=== PATIENT | female | born 1995 | race Caucasian/White ===

== ENCOUNTER → 2021-11-23 16:29 | Outpatient (BNVA) | payer BC, SELFPAY | PROVIDERS: PCP Nurse Practitioner; Visit Provider Emergency Medicine | DX: J02.9 Acute pharyngitis, unspecified (principal) | CPT/HCPCS: 87880 ==

== ENCOUNTER → 2022-02-26 08:39 | Outpatient (BNVA) | payer BC, SELFPAY | PROVIDERS: PCP Nurse Practitioner; Visit Provider Family Medicine Adult Medicine | DX: J30.9 Allergic rhinitis, unspecified (principal); J02.9 Acute pharyngitis, unspecified | CPT/HCPCS: 87880 ==

== ENCOUNTER → 2022-06-25 14:00 | Outpatient (BNVA) | payer OTHER, SELFPAY | PROVIDERS: Visit Provider Obstetrics & Gynecology | DX: O09.899 Supervision of other high risk pregnancies, unspecified trimester (principal); G43.009 Migraine without aura, not intractable, without status migrainosus; O09.291 Supervision of pregnancy with other poor reproductive or obstetric history, first trimester; O09.10 Supervision of pregnancy with history of ectopic pregnancy, unspecified trimester | CPT/HCPCS: 80307; 84156; 84315; 85025; 86592; 86762; 86803; 86850; 86900; 87077; 87086; 87184; 87491; 87591; 87806 ==

== ENCOUNTER 2022-07-23 11:50 | Outpatient (CLI) | payer OTHER, SELFPAY ==
[2022-07-23 13:46] LABS: Total Volume, Urine 1600 mL; Urine Total Protein 5.7 mg/dL (0-150); Urine Total Protein 24 Hour 91.2 mg/24hr (0-150)
== END 2022-07-23 11:51 | disposition home or self-care (01) ==
LOC: LAB 11:59
PROVIDERS: PCP Family Medicine; Visit Provider Obstetrics & Gynecology
DX: O09.899 Supervision of other high risk pregnancies, unspecified trimester (principal)
CPT/HCPCS: 36415; 84156

== ENCOUNTER → 2022-07-30 08:00 | Outpatient (BNVA) | payer OTHER, SELFPAY | PROVIDERS: PCP Family Medicine; Visit Provider Nurse Practitioner Women's Health | DX: O09.899 Supervision of other high risk pregnancies, unspecified trimester (principal); X58.XXXA Exposure to other specified factors, initial encounter | CPT/HCPCS: 84315; 87077; 87086; 87184 ==

== ENCOUNTER → 2022-08-21 11:23 | Outpatient (BNVA) | payer OTHER, SELFPAY | PROVIDERS: PCP Family Medicine; Visit Provider Obstetrics & Gynecology | DX: Z34.92 Encounter for supervision of normal pregnancy, unspecified, second trimester (principal); Z3A.20 20 weeks gestation of pregnancy | CPT/HCPCS: 76805 ==

== ENCOUNTER → 2022-08-30 10:00 | Outpatient (BNVA) | payer SELFPAY | PROVIDERS: PCP Family Medicine; Visit Provider Obstetrics & Gynecology | DX: O09.899 Supervision of other high risk pregnancies, unspecified trimester (principal); Z3A.00 Weeks of gestation of pregnancy not specified | CPT/HCPCS: 81000 ==

== ENCOUNTER → 2022-09-23 12:20 | Outpatient (BNVA) | payer OTHER, SELFPAY | PROVIDERS: PCP Family Medicine; Visit Provider Obstetrics & Gynecology | DX: O09.292 Supervision of pregnancy with other poor reproductive or obstetric history, second trimester (principal); Z3A.00 Weeks of gestation of pregnancy not specified | CPT/HCPCS: 80053; 82950; 84156; 84315; 85025; 87077; 87086; 87184 ==

== ENCOUNTER → 2022-09-24 13:17 | Outpatient (BNVA) | payer OTHER, SELFPAY | PROVIDERS: PCP Family Medicine; Visit Provider Obstetrics & Gynecology | DX: Z34.92 Encounter for supervision of normal pregnancy, unspecified, second trimester (principal); Z3A.26 26 weeks gestation of pregnancy | CPT/HCPCS: 76816 ==

== ENCOUNTER 2022-09-30 12:22 | Outpatient (CLI) | payer OTHER, SELFPAY ==
[2022-09-30 13:47] LABS: Total Volume, Urine 2200 mL
[2022-09-30 13:59] LABS: Urine Total Protein 7.5 mg/dL (0-150)
== END 2022-09-30 12:23 | disposition home or self-care (01) ==
LOC: LAB 12:24
PROVIDERS: PCP Family Medicine; Visit Provider Obstetrics & Gynecology
DX: O09.292 Supervision of pregnancy with other poor reproductive or obstetric history, second trimester (principal)
CPT/HCPCS: 84156

== ENCOUNTER 2022-10-14 08:16 | Outpatient (CLI) | payer OTHER, SELFPAY ==
[2022-10-14 08:48] LABS: Total Volume, Urine 2100 mL
[2022-10-14 09:13] LABS: Urine Total Protein 7.3 mg/dL (0-150); Urine Total Protein 24 Hour 153.3 mg/24hr (0-150)
== END 2022-10-14 08:17 | disposition home or self-care (01) ==
LOC: LAB 08:19
PROVIDERS: PCP Family Medicine; Visit Provider Obstetrics & Gynecology
DX: O09.292 Supervision of pregnancy with other poor reproductive or obstetric history, second trimester (principal)
CPT/HCPCS: 84156

== ENCOUNTER → 2022-10-15 11:56 | Outpatient (BNVA) | payer OTHER, SELFPAY | PROVIDERS: PCP Family Medicine; Referring Provider Obstetrics & Gynecology; Visit Provider Nurse Practitioner Women's Health | DX: O36.60X0 Maternal care for excessive fetal growth, unspecified trimester, not applicable or unspecified (principal); Z3A.29 29 weeks gestation of pregnancy | CPT/HCPCS: 76816; 81000 ==

== ENCOUNTER 2022-11-04 19:10 | Outpatient (CLI) | payer OTHER, SELFPAY ==
[2022-11-04] VITALS (31 sets, daily range): BP systolic 130–150; BP diastolic 82–94; PULSE 71–111; RESP 16–17; O2SAT 92–100; BMI 29.1
[2022-11-04 20:04] LABS: Basophils % 0.2 %; Eosinophils % 0.3 %; Hematocrit 34.1 % (37.0-47.0); Hemoglobin 11.6 g/dL (11.5-15.3); Lymphocytes # 1.9 10^3/uL (0.8-4.8); Lymphocytes % 18.8 %; Mean Corpuscular Hemoglobin 30.2 pg (28.0-34.0); Mean Corpuscular Volume 88.8 fl (81-99); Mean Platelet Volume 11.3 fL (7.4-10.4); Monocytes # 0.5 10^3/uL (0.2-0.9); Monocytes % 5.3 %; Neutrophils # 7.51 10^3/uL (1.8-7.7); Neutrophils % 74.7 %; Nucleated Red Blood Cells % 0 %; Platelet Count 260 10^3/cmm (130-400); Red Blood Count 3.84 10^6/uL (4.1-5.3); Red Cell Distribution Width 12.2 % (12.1-15.1); White Blood Count 10.1 10^3/uL (4.0-10.0)
[2022-11-04 20:16] LABS: Add Urine Microscopic? YES; Bilirubin Urine 1+ (Negative); Blood Urine 3+ (Negative); Glucose Urine UA 1+ (Normal); Ketones Urine Negative (Negative); Leukocyte Esterase Urine Negative (Negative); Nitrate Urine Negative (Negative); Protein Urine Trace (Negative); Specific Gravity, Urine 1.025 (1.005-1.030); Urine Appearance Hazy (CLEAR); Urine Color Yellow (Yellow); Urobilinogen Urine 8 mg/dL (Negative); pH Urine 6 (5-7)
[2022-11-04 20:17] LABS: Add Urine Culture? No; Bacteria Urine 2+ /hpf; Mucus Urine 2+ /hpf; RBC Urine 25-40 /hpf (0-2)
[2022-11-04] MEDS: ondansetron 2 mg/ML SDV 2 mL 4 MG IVP (20:18)
[2022-11-04] MEDS: lactated ringers 1,000 ML 999 ML IV (20:19)
[2022-11-04 20:48] LABS: Urine Creatinine 171 mg/dL (28-217)
[2022-11-04 20:49] LABS: Alanine Aminotransferase 17 U/L (0-33); Albumin Level 3.3 g/dL (3.5-5.2); Alkaline Phosphatase 175 U/L (35-105); Anion Gap 12.5 (5-19); Aspartate Amino Transferase 27 U/L (0-32); Blood Urea Nitrogen 6 mg/dL (6-20); Calcium 8.6 mg/dL (8.5-10.5); Carbon Dioxide 23 mmol/L (22-29); Chloride 100 mmol/L (98-107); Globulin 2.9 g/dL (1.3-4.6); Glucose 95 mg/dL (65-115); Osmolality Calculated 273 mOsm/kg (285-295); Sodium 133 mmol/L (136-145); Total Bilirubin 0.6 mg/dL (0.15-1.2); Total Protein 6.2 g/dL (6.6-8.7); UPRO/UCREAT Ratio 0.26 mg/mg CR; Uric Acid 4.1 mg/dL (2.4-5.7); Urine Protein Random 45 mg/dL
[2022-11-04 20:57] LABS: Potassium 2.5 mmol/L (3.5-5.1)
== END 2022-11-04 21:22 | disposition home or self-care (01) ==
LOC: OPOB 19:15 → OBGYN 19:15
PROVIDERS: PCP Family Medicine; Visit Provider Obstetrics & Gynecology
DX: O16.9 Unspecified maternal hypertension, unspecified trimester (principal); Z3A.00 Weeks of gestation of pregnancy not specified
CPT/HCPCS: 36415; 59025; 80053; 81000; 81001; 82570; 84156; 84550; 85025; 87086; 96374; 99211; J2405; J7120

== ENCOUNTER 2022-11-05 21:21 | Outpatient (CLI) | payer OTHER, SELFPAY ==
[2022-11-05 21:41] LABS: Total Volume, Urine 1600 mL
--- NOTE | 2022-11-05 22:03 | PC.NURSE ---
Dr. Esteves called and notified of 24 hour urine results. He stated he would see the pt tomorrow.
== END 2022-11-05 21:22 | disposition home or self-care (01) ==
LOC: OPOB 21:22
PROVIDERS: PCP Family Medicine; Visit Provider Obstetrics & Gynecology
DX: O09.292 Supervision of pregnancy with other poor reproductive or obstetric history, second trimester (principal); Z3A.00 Weeks of gestation of pregnancy not specified
CPT/HCPCS: 84156

== ENCOUNTER → 2022-11-06 | Outpatient (BNVA) | payer OTHER, SELFPAY | PROVIDERS: PCP Family Medicine; Visit Provider Obstetrics & Gynecology | DX: E87.6 Hypokalemia (principal) | CPT/HCPCS: 87086 ==

== ENCOUNTER → 2022-11-07 14:03 | Outpatient (BNVA) | payer OTHER, SELFPAY | PROVIDERS: PCP Family Medicine; Visit Provider Obstetrics & Gynecology | DX: O09.292 Supervision of pregnancy with other poor reproductive or obstetric history, second trimester (principal) | CPT/HCPCS: 84132 ==

== ENCOUNTER 2022-11-11 11:12 | Outpatient (CLI) | payer OTHER, SELFPAY ==
[2022-11-11 11:30] VITALS: BMI 29.7
[2022-11-11] MEDS: betamethasone susp 6 mg/mL 5 mL 12 MG IM (11:43)
== END 2022-11-11 11:45 | disposition home or self-care (01) ==
LOC: OPOB 11:19 → OBGYN 11:19
PROVIDERS: PCP Family Medicine; Visit Provider Obstetrics & Gynecology
DX: O09.299 Supervision of pregnancy with other poor reproductive or obstetric history, unspecified trimester (principal); Z3A.00 Weeks of gestation of pregnancy not specified
CPT/HCPCS: 96372; 99211; J0702

== ENCOUNTER 2022-11-12 12:00 | Outpatient (CLI) | payer OTHER, SELFPAY ==
[2022-11-12 12:00] VITALS: RESP 18
[2022-11-12 12:04] VITALS: BMI 29.6
[2022-11-12 12:07] VITALS: BP 140/99; PULSE 98
[2022-11-12] MEDS: betamethasone susp 6 mg/mL 5 mL 12 MG IM (12:10)
[2022-11-12 18:55] LABS: Urine Creatinine 101 mg/dL (28-217)
[2022-11-12 18:57] LABS: UPRO/UCREAT Ratio 0.38 mg/mg CR; Urine Protein Random 38 mg/dL
== END 2022-11-12 12:15 | disposition home or self-care (01) ==
LOC: OPOB 12:01 → OBGYN 12:03
PROVIDERS: Obstetrics & Gynecology; PCP Family Medicine; Visit Provider Obstetrics & Gynecology
DX: O13.9 Gestational [pregnancy-induced] hypertension without significant proteinuria, unspecified trimester (principal); Z3A.00 Weeks of gestation of pregnancy not specified
CPT/HCPCS: 59025; 82570; 84156; 96372; 99211; J0702

== ENCOUNTER 2022-11-13 | Observation (INO) | payer OTHER, SELFPAY ==
[2022-11-12] VITALS (9 sets, daily range): BP systolic 116–148; BP diastolic 61–98; PULSE 73–102; TEMP 36.3; BMI 29.7
[2022-11-12 21:22] LABS: Basophils % 0.1 %; Hematocrit 35.2 % (37.0-47.0); Lymphocytes # 1.2 10^3/uL (0.8-4.8); Mean Corpuscular HGB Conc 34.1 g/dL (30.0-36.0); Mean Corpuscular Hemoglobin 29.8 pg (28.0-34.0); Mean Corpuscular Volume 87.3 fl (81-99); Mean Platelet Volume 11.7 fL (7.4-10.4); Monocytes # 0.4 10^3/uL (0.2-0.9); Monocytes % 3.5 %; Neutrophils # 10.15 10^3/uL (1.8-7.7); Neutrophils % 84.9 %; Nucleated Red Blood Cells % 0 %; Platelet Count 333 10^3/cmm (130-400); Red Blood Count 4.03 10^6/uL (4.1-5.3); Red Cell Distribution Width 11.8 % (12.1-15.1)
[2022-11-12 21:28] LABS: Add Urine Microscopic? YES; Bilirubin Urine Neg (Negative); Blood Urine Trace (Negative); Glucose Urine UA 1+ (Normal); Ketones Urine Negative (Negative); Leukocyte Esterase Urine Negative (Negative); Nitrate Urine Negative (Negative); Protein Urine Neg (Negative); Specific Gravity, Urine 1.015 (1.005-1.030); Urine Appearance Clear (CLEAR); Urine Color Yellow (Yellow); Urobilinogen Urine Neg (Negative); pH Urine 7 (5-7)
[2022-11-12 21:29] LABS: Add Urine Culture? No; Amorphous Sediment Urine 1+ /hpf; Bacteria Urine 1+ /hpf; RBC Urine 0-4 /hpf (0-2)
[2022-11-12 21:41] LABS: Alanine Aminotransferase 195 U/L (0-33); Albumin Level 3.3 g/dL (3.5-5.2); Alkaline Phosphatase 227 U/L (35-105); Anion Gap 15.4 (5-19); Aspartate Amino Transferase 233 U/L (0-32); Blood Urea Nitrogen 9 mg/dL (6-20); Carbon Dioxide 22 mmol/L (22-29); Chloride 102 mmol/L (98-107); Globulin 3.5 g/dL (1.3-4.6); Glucose 146 mg/dL (65-115); Osmolality Calculated 283 mOsm/kg (285-295); Potassium 3.4 mmol/L (3.5-5.1); Sodium 136 mmol/L (136-145); Total Bilirubin 0.6 mg/dL (0.15-1.2); Total Protein 6.8 g/dL (6.6-8.7); Uric Acid 3.4 mg/dL (2.4-5.7)
[2022-11-12 22:01] LABS: Urine Creatinine 46 mg/dL (28-217); Urine Protein Random 14 mg/dL
--- NOTE | 2022-11-12 22:03 | USR_ITS ---
PROCEDURE INFORMATION: Exam: US Biophysical Profile Without Non-Stress Test Exam date and time: 11/12/2022 10:19 PM Age: 27 years old Clinical indication: Screening exam; Routine US screening of fetus; Third trimester (=28 weeks 0 days); ; Patient HX: Pre-eclampsia TECHNIQUE: Imaging protocol: US biophysical profile without non-stress testing. COMPARISON: US OB >= 14 weeks fetus [id number] 08/21/2022 11:24 AM FINDINGS: Single living fetus in cephalic position. heart activity documented by the technologist, 150 bpm. Biophysical profile was 8/8. Anterior placenta. No visible placental abnormality on the provided images. Amniotic fluid volume appears within normal limits for gestation, GERALD 16.5 cm. measurements were not obtained at this time. Evaluation of anatomy was not performed at this time. Cervical length was estimated with transabdominal scanning, measuring approximately 3.2 cm. No definite cervical canal dilation or fluid on the provided images. The urinary bladder was not completely evaluated/imaged at this time. US/US OB BPP wo NST [id number] IMPRESSION: 1. Single living intrauterine fetus, details above. 2. Biophysical profile 8/8. 3. Amniotic fluid volume appears within normal limits for gestation, GERALD 16.5 cm. 4. Other details discussed above.
[2022-11-12] MEDS: famotidine 20 mg Tablet PO (23:14)
[2022-11-12] MEDS: dextrose 5%-lactated ringers 1,000 ML 125 ML IV (23:15)
[2022-11-13] VITALS (35 sets, daily range): BP systolic 110–141; BP diastolic 64–95; PULSE 69–100; RESP 16; TEMP 36.6–36.7
--- NOTE | 2022-11-13 07:00 | P.PN_ITS ---
Subjective Subjective: Ms. Barajas is a 26 year old new patient with LMP of 04/05/2022, JOO 01/10/2023, placing her at 32 weeks. Came to L&D due elevated BP at home. Vitals/I&O/Wt Last Vital Signs Temp 97.9 F 11/13/22 06:02 Pulse 100 11/13/22 06:51 BP 126/80 11/13/22 06:51 O2 Del Method Room Air 11/12/22 21:06 Weight last 48 hrs Weight 86.183 kg Physical Exam Narrative: GA: Alert and oriented ?3. Lungs: Clear to auscultation bilaterally. Heart: Regular rhythm and rate. Abdomen: Gravid, full the height equals dates, nontender. 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 Extremities: no edema, no cyanosis, no calves pain. heart tracing: Basal rate: 140's bpm, Variability: moderate, Accelerati ons: present, Decelerations: absent, Contraction: none. Data 11/12/22 21:10 11/12/22 21:10 A&P Assessment and plan (1) Gestational hypertension affecting second : Ms. Barajas is a 26 year old new patient with LMP of 04/05/2022, JOO 01/10/2023, placing her at 32 weeks. Came with concerns with elevated blood pressure. Preeclampsia work-up significant with mildly elevated liver enzymes and protein creatinine ratio at 0.3. Overnight observation blood pressure has been completely normal. Patient was counseled regarding conservative management since she is only 32 weeks. 24-hour urine collection ordered, NST twice a week biophysical profile once a week and preeclampsia work-up weekly until the patient can reach 37 weeks or until she start showing symptoms and signs of severe preeclampsia. She was advised to be homebound for the rest of the week except care visits. (2) Pre-eclampsia affecting , antepartum: (3) History of pre-eclampsia in prior , currently in third t rimester: Attestations Medical Necessity Statement*: In my professional opinion poor admitting diagnosis. Coding Level of Care Code Acute Code for [facility] Diagnoses Gestational hypertension affecting second O13.9 Pre-eclampsia affecting , antepartum O14.90 History of pre-eclampsia in prior , currently in third trimester O09.293
== END 2022-11-13 08:15 | disposition home or self-care (01) ==
LOC: OBGYN 07:34
PROVIDERS: Admitting Provider Obstetrics & Gynecology; PCP Family Medicine; Visit Provider Obstetrics & Gynecology
DX: O13.3 Gestational [pregnancy-induced] hypertension without significant proteinuria, third trimester (principal); O14.93 Unspecified pre-eclampsia, third trimester; Z3A.32 32 weeks gestation of pregnancy
CPT/HCPCS: 36415; 59025; 76819; 80053; 81001; 82570; 83986; 84156; 84550; 85025; 99211; G0378; J7121

== ENCOUNTER 2022-11-14 09:48 | Outpatient (CLI) | payer OTHER, SELFPAY ==
[2022-11-14 11:17] LABS: Total Volume, Urine 4800 mL
[2022-11-14 12:06] LABS: Urine Total Protein 11.8 mg/dL (0-150); Urine Total Protein 24 Hour 566.4 mg/24hr (0-150)
== END 2022-11-14 09:49 | disposition home or self-care (01) ==
PROVIDERS: PCP Family Medicine; Visit Provider Obstetrics & Gynecology
DX: Z01.89 Encounter for other specified special examinations (principal)
CPT/HCPCS: 76816; 76819; 84156

== ENCOUNTER → 2023-05-30 11:09 | Outpatient (BNVA) | payer OTHER, SELFPAY | PROVIDERS: PCP Family Medicine; Visit Provider Family Medicine | DX: R10.9 Unspecified abdominal pain (principal) | CPT/HCPCS: 80053; 84439; 84443 ==

== ENCOUNTER 2023-06-20 08:52 | Outpatient (CLI) | payer OTHER, SELFPAY ==
--- NOTE | 2023-06-20 09:00 | US_ITS ---
WS: [id number] RIGHT UPPER QUADRANT ULTRASOUND HISTORY: RUQ pain COMPARISON: None available. Liver: 16.4 cm in length. Normal size liver and echogenicity. No bile duct dilatation or mass. Portal Vein: Normal hepatopetal flow with monophasic waveform. Gallbladder: Normally distended gallbladder with no stones or wall thickening. CBD: 0.3 cm Pancreas: Normal size and echogenicity. Right kidney: 11.0 cm in length. Normal size and echogenicity. No hydronephrosis or mass. Aorta and IVC: Unremarkable abdominal aorta and IVC. No ascites. IMPRESSION: Normal RIGHT upper quadrant ultrasound.
== END 2023-06-20 08:53 | disposition home or self-care (01) ==
LOC: RAD 08:52
PROVIDERS: PCP Family Medicine; Visit Provider Family Medicine
DX: R10.11 Right upper quadrant pain
CPT/HCPCS: 76705

== ENCOUNTER → 2023-10-08 10:34 | Outpatient (BNVA) | payer OTHER, SELFPAY | PROVIDERS: PCP Family Medicine; Visit Provider Nurse Practitioner Family | DX: R50.9 Fever, unspecified (principal) | CPT/HCPCS: 87400 ==

== ENCOUNTER → 2023-12-11 09:00 | Outpatient (BNVA) | payer OTHER, SELFPAY | PROVIDERS: PCP Family Medicine; Visit Provider Obstetrics & Gynecology | DX: R82.90 Unspecified abnormal findings in urine (principal) | CPT/HCPCS: 87077; 87086; 87184 ==

== ENCOUNTER 2024-03-03 14:28 | Emergency (ER) | payer OTHER, SELFPAY ==
[2024-03-03 14:30] VITALS: BP 153/108; PULSE 93; RESP 18; TEMP 36.7; O2SAT 100; BMI 26.6
--- NOTE | 2024-03-03 14:45 | W.ED.GENADLT ---
HPI - General Adult General: Chief complaint: General Medical Stated complaint: facial numbness, dizziness Time Seen by Provider: 03/03/24 14:45 History of Present Illness: 28-year-old female presents emergency room with right-sided facial numbness and dizziness that began suddenly while at work at 1410 she arrived here at 1428. States she felt like her right eye was drooping she had a headache intermittently for the last week. She does not normally take anything for blood pressure 16 months ago she had a baby had significant preeclampsia she was required to take medications for blood pressure for a period of time and then after about 6 weeks they stopped does not she has not needed anything since. On arrival here 18 minutes after the episode all of her symptoms have resolved. Initially a stroke alert was called see Dr. Walker's consultation note Associated symptoms: Deny chest pain, dyspnea or rash Related Data Home Medications Medication Instructions Recorded Confirmed dapsone 5 % topical gel 1 applic topical BID 05/30/23 10/23/23 levonorgestrel 21 mcg/24 hr (up to intrauterine 05/30/23 10/23/23 8 years) 52 mg intrauterine device (Mirena) Previous Rx's Medication Instructions Recorded famotidine 40 mg tablet 40 mg PO DAILY #30 tabs 10/23/23 levocetirizine 5 mg tablet (Xyzal) 5 mg PO DAILY #30 tabs 10/23/23 estradiol 0.5 mg tablet 0.5 mg PO QDAY #90 tabs 11/04/23 amitriptyline 10 mg tablet 10 mg PO DAILY #90 tabs 12/18/23 escitalopram oxalate 10 mg tablet 10 mg PO DAILY #30 tabs 01/26/24 (Lexapro) ciprofloxacin HCl 0.3 % eye drops See Rx Instructions ophthalmic 01/30/24 (eye) .COMPLEX #2.5 mL doxycycline hyclate 100 mg capsule 100 mg PO BID #14 caps 02/12/24 amlodipine 5 mg tablet 2.5 mg (1/2 x 5 mg) PO DAILY #30 03/03/24 tabs metoprolol succinate 25 mg 25 mg PO DAILY #30 tabs 03/03/24 tablet,extended release 24 hr (Toprol XL) Allergies Allergy/AdvReac Type Severity Reaction Status Date / Time naproxen Allergy Intermediate ALGY-Hives Verified 10/23/23 14:36 Review of Systems Const: Denies: fever(s) or chills Card: Denies: chest pain Resp: Denies: dyspnea GI: Denies: abdominal pain : Denies: dysuria, urinary frequency or urinary urgency Musc: Denies: neck pain or back pain Skin/Breast: Denies: rash PFSH ED PFSH: Medical History History of pre-eclampsia in prior , currently in third trimester Gestational hypertension without significant proteinuria Anxiety Migraine without aura History of ectopic (~2018) Left fallopian tube--- treated with MTX;Dr [facility] Surgical History History of tonsillectomy and adenoidectomy at age 6 Hx of wisdom tooth extraction (~2014) Family History Grandfather Colon cancer Paternal--dx age unknown Cancer Paternal-liver Grandmother Hypertension Maternal Stroke Maternal Father Hypertension Other Diabetes Liver disease Denies family history of Ovarian cancer Autoimmune disease Dementia Heart disease Hyperlipidemia Hyperthyroidism Hypothyroidism Psychiatric illness Chronic kidney disease (CKD) Breast cancer Bleeding disorder Lung disease Uterine cancer Thyroid disease Social History Smoking and tobacco/nicotine status: never used tobacco/nicotine Alcohol intake: current Alcohol intake frequency: holidays/special occasions only Substance/Drug Use: never Lives independently: Yes Marital status: Number of children: 2 Current occupational status: employed 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 [employer] Special flavia needs: No Agree to transfusion: Yes Female Reproductive History: Spontaneous abortions: No Physical Exam Const: GENERAL APPEARANCE: cooperative ORIENTATION/CONSCIOUSNESS: Yes awake, Yes oriented to person, Yes oriented to place and Yes oriented to time HENMT: COMMON NORMALS: normocephalic, atraumatic and hearing grossly normal bilaterally HEAD & SCALP: normocephalic and atraumatic Resp: COMMON NORMALS: normal respiratory effort, No retractions, No use of accessory muscles and clear to auscultation bilaterally AUSCULTATION: clear to auscultation bilaterally Cardio: COMMON NORMALS: regular rate, regular rhythm and No murmurs present (Cardio) RATE: regular rate RHYTHM: regular rhythm GI: COMMON NORMALS: Soft to palpation and No hepatosplenomegaly present AUSCULTATION: Yes normoactive bowel sounds PALPATION: Yes Soft to palpation, No Tenderness to palpation present (GI), No Guarding due to palpation present (GI) and Yes No hepatosplenomegaly present Extremity: COMMON NORMALS: normal to inspection, capillary refill normal, no clubbing, cyanosis or edema, no calf tenderness and no pedal edema Neuro: SENSORIUM/ORIENTATION: Yes oriented to person, Yes oriented to place and Yes oriented to time Skin: COMMON NORMALS: no rashes or lesions noted GENERAL SKIN EXAM: no rashes or lesions noted Course Vital Signs: Vital signs: Vital Signs Temperature 98.1 F 03/03/24 14:30 Pulse Rate 79 03/03/24 16:30 Respiratory Rate 21 H 03/03/24 14:55 Blood Pressure 122/97 03/03/24 16:30 Pulse Oximetry 98 03/03/24 16:30 Oxygen Delivery Me thod Room Air 03/03/24 14:55 MDM - General Adult Medical Decision Making Patient is initial presenting NIH score was 0 on repeat exam she is feeling much better she did not have any further symptoms we did treat her blood pressure and she feels much better. I discussed with Dr. Walker he is not recommended aspirin at this time. Recommends just treating her blood pressure. Will start on Toprol-XL 25 p.o. daily and also put her on amlodipine 2.5 p.o. daily will go with a lower dose because she is still breast-feeding however her child is 16 months. She indicated she is probably not going to continue breast-feeding much longer. Recommend that she follow-up with her primary care doctor within the next couple of days prior to the weekend to reevaluate blood pressure. If she has recurrence or worsening of symptoms she should return. If her symptoms do recur she may require further advanced imaging. Lab Data 03/03/24 15:08 03/03/24 15:[address] 03/03/24 14:55 IMPRESSION: 1. No evidence of intracranial hemorrhage or mass effect. 2. No acute intracranial findings. Notified Андрей Mane DO at 03/03/2024 3:10 PM. Laboratory Results WBC 8.50 10^3/uL (3.29-11.43) 03/03/24 15:08 RBC 4.92 10^6/uL (3.85-5.65) 03/03/24 15:08 Hgb 14.90 g/dL (11.27-16.99) 03/03/24 15:08 Hct 43.8 % (36-47) 03/03/24 15:08 MCV 89.0 fl (85-98) 03/03/24 15:08 MCH 30.3 pg (27-33) 03/03/24 15:08 MCHC 34.0 g/dL (30-55) 03/03/24 15:08 RDW 11.8 % (12.1-15.1) L 03/03/24 15:08 Plt Count 239 10^3/cmm (157-399) 03/03/24 15:08 MPV 11.3 fL (7.4-10.4) H 03/03/24 15:08 Neut % (Auto) 60.1 % 03/03/24 15:08 Lymph % (Auto) 31.9 % 03/03/24 15:08 Bonner % (Auto) 6.6 % 03/03/24 15:08 Eos % (Auto) 0.6 % 03/03/24 15:08 Baso % (Auto) 0.6 % 03/03/24 15:08 Neut # (Auto) 5.11 10^3/uL (1.8-7.7) 03/03/24 15:08 Lymph # (Auto) 2.7 10^3/uL (0.8-4.8) 03/03/24 15:08 Bonner # (Auto) 0.6 10^3/uL (0.2-0.9) 03/03/24 15:08 Eos # (Auto) 0.1 10^3/uL (0.0-0.8) 03/03/24 15:08 Baso # (Auto) 0.1 10^3/uL (0.0-0.1) 03/03/24 15:08 Nucleated RBC % (auto) 0 % 03/03/24 15:08 Nucleated RBCs # 0.0 /100WBC 03/03/24 15:08 PT 13.10 SECONDS (12.1-14.9) 03/03/24 15:30 INR 0.96 (0.8-1.2) 03/03/24 15:30 APTT 27.0 SECONDS (23.9-36.7) 03/03/24 15:30 Sodium 138 mmol/L (136-145) 03/03/24 15:30 Potassium 3.7 mmol/L (3.5-5.1) 03/03/24 15:30 Chloride 105 mmol/L (98-107) 03/03/24 15:30 Carbon Dioxide 23 mmol/L (22-29) 03/03/24 15:30 Anion Gap 13.7 (5-19) 03/03/24 15:30 BUN 7 mg/dL (6-20) 03/03/24 15:30 Creatinine 0.7 mg/dL (0.5-0.9) 03/03/24 15:30 GFR Calculation 98.9 mL/min (90-130) 03/03/24 15:30 Glucose 106 mg/dL (65-115) 03/03/24 15:30 POC Glucose 103 mg/dL (70-110) 03/03/24 15:06 Calculated Osmolality 284 mOsm/kg (285-295) L 03/03/24 15:30 Calcium 9.0 mg/dL (8.5-10.5) 03/03/24 15:30 Total Bilirubin 0.4 mg/dL (0.15-1.2) 03/03/24 15:30 AST 18 U/L (0-32) 03/03/24 15:30 ALT 25 U/L (0-33) 03/03/24 15:30 Alkaline Phosphatase 98 U/L (35-105) 03/03/24 15:30 Total Protein 7.0 g/dL (6.6-8.7) 03/03/24 15:30 Albumin 4.2 g/dL (3.5-5.2) 03/03/24 15:30 Globulin 2.8 g/dL (1.3-4.6) 03/03/24 15:30 HCG, Qual Negative (Negative) 03/03/24 15:30 Urine Color Yellow (Yellow) 03/03/24 15:12 Urine Appearance Clear (CLEAR) 03/03/24 15:12 Urine pH 5.5 (5-7) 03/03/24 15:12 Ur Specific [place] 1.004 (1.005-1.030) L 03/03/24 15:12 Urine Protein Negative (Negative) 03/03/24 15:12 Urine Glucose (UA) Negative (Normal) 03/03/24 15:12 Urine Ketones Negative (Negative) 03/03/24 15:12 Urine Blood Negative (Negative) 03/03/24 15:12 Urine Nitrate Negative (Negative) 03/03/24 15:12 Urine Bilirubin Negative (Negative) 03/03/24 15:12 Urine Urobilinogen 0.2 mg/dL (Negative) 03/03/24 15:12 Ur Leukocyte Esterase Trace (Negative) A 03/03/24 15:12 Urine RBC 0-2 /hpf (0-2) 03/03/24 15:12 Urine WBC 0-5 /hpf (0-5) 03/03/24 15:12 Ur Squamous Epith Cells 0-5 /hpf (0-5) 03/03/24 15:12 Amorphous Sediment Not Reportable 03/03/24 15:12 Urine Bacteria 1+ /hpf (NONE) H 03/03/24 15:12 Hyaline Casts 0-4 /lpf H 03/03/24 15:12 Urine Opiates Screen Negative ng/mL (Negative) 03/03/24 15:12 Ur Barbiturates Screen Negative ng/mL (Negative) 03/03/24 15:12 Ur Phencyclidine Scrn Negative ng/mL (Negative) 03/03/24 15:12 Ur Amphetamines Screen Negative ng/mL (Negative) 03/03/24 15:12 U Benzodiazepines Scrn Negative ng/mL (Negative) 03/03/24 15:12 Urine Cocaine Screen Negative ng/mL (Negative) 03/03/24 15:12 U Marijuana (THC) Screen Negative ng/mL (Negative) 03/03/24 15:12 All radiology interpretation(s) finalized by discharge Discharge Plan Discharge Patient Disposition: Home Clinical Impression: Accelerated hypertension Condition: Stable Prescriptions: New amlodipine 5 mg tablet 2.5 mg PO DAILY Qty: 30 0RF Toprol XL 25 mg tablet extended release 24 hr 25 mg PO DAILY Qty: 30 0RF No Action Mirena 21 mcg/24 hours (8 yrs) 52 mg intrauterine device intrauterine dapsone 5 % gel 1 applic topical BID levocetirizine [Xyzal] 5 mg tablet 5 mg PO DAILY Qty: 30 4RF famotidine 40 mg tablet 40 mg PO DAILY Qty: 30 1RF estradiol 0.5 mg tablet 0.5 mg PO QDAY Qty: 90 3RF amitriptyline 10 mg tablet 10 mg PO DAILY Qty: 90 3RF escitalopram oxalate [Lexapro] 10 mg tablet 10 mg PO DAILY Qty: 30 1RF ciprofloxacin HCl 0.3 % drops See Rx Instructions ophthalmic (eye) .COMPLEX Qty: 2.5 0RF Rx Instructions: put 1-2 drps in affected eye(s) every 2hr up to 8 times/day x2days; then 4 times/day x5days ophthalmic (eye) doxycycline hyclate 100 mg capsule 100 mg PO BID Qty: 14 0RF Discharge Orders: Discharge ED (Routine); Ordered 03/03/24 Ordered By: Андрей Mane Referrals: Curtis Recinos MD [Primary Care Provider] - Discharge Diet: Usual diet Discharge Activity: Increase activity as tolerated Patient Instructions: Opioid Safety, Pain Management Activity Restrictions/Additional Instructions: Thank you for choosing [facility] for your healthcare needs today. It is very important that you follow up as instructed or that you return to the Emergency Department should you have concerns or if your condition changes or worsens in any way. You are seen in the emergency room for complaints of right-sided facial weakness. We did have you evaluated by the neurologist as well as having a CT of your head. Your stroke score was 0 and as your blood pressure improved you reported your symptoms had resolved. I discussed your case with the on-call neurologist who had seen you earlier we both agree at this point would not recommend aspirin but do recommend treatment for your blood pressure. In consideration of your current breast-feeding status will use the lowest possible dose of amlodipine 2.5 mg daily and metoprolol XL 25 mg daily. Should follow-up with your primary care doctor within the next few days and reevaluate efficacy and continuing medications. Coding Level of Care Code ED Pest Control Specialist for [facility]
[2024-03-03 14:55] VITALS: BP 148/98; PULSE 80; RESP 21; O2SAT 99
--- NOTE | 2024-03-03 14:55 | CT_ITS ---
WS: [id number] CT HEAD TECHNIQUE: Noncontrast CT of the head obtained from the skullbase to the vertex. CLINICAL INFORMATION: Symptoms of acute stroke COMPARISON: None. DLP: All CT scans at [facility] use at least one of these dose optimization techniques: automated e xposure control; mA and/or kV adjustment per patient size (includes targeted exams where dose is matc hed to clinical indication); or iterative reconstruction. FINDINGS: No evidence of intracranial hemorrhage or mass effect. Ventricular system and basal cisterns are church nt. No extra-axial fluid collections. No evidence of mass or mass effect. Normal tobar-white different iation. Incidental slight low-lying cerebellar tonsils. Paranasal sinuses and mastoid air cells are well aerated. .Normal visualized soft tissues. CT/CT head thrombolytic [id number] IMPRESSION: 1. No evidence of intracranial hemorrhage or mass effect. 2. No acute intracranial findings. Notified Андрей Mane DO at 03/03/2024 3:10 PM.
[2024-03-03 15:09] VITALS: BP 153/106; PULSE 80; O2SAT 99
--- NOTE | 2024-03-03 15:09 | ECG_ITS ---
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 Measurements Intervals [place] Rate: 77 P: 47 MN: 151 QRS: 49 QRSD: 87 T: 33 QT: 368 QTc: 418 Interpretive Statements SINUS RHYTHM WITH SINUS ARRHYTHMIA No previous ECG available for comparison Electronically Signed On 03-03-2024 15:37:02 CDT by Jerardo Reynolds M.D. [email or web address]
[2024-03-03 15:11] LABS: Glucose Point of Care 103 mg/dL (70-110)
--- NOTE | 2024-03-03 15:12 | P.CONIM_ITS ---
Providers/Reason For Consult 2 Consulting Physician/Specialty*: Armando Walker MD neurology and epilepsy Reason for Consult*: Code stroke/acute care emergency department room #15 Primary Care Provider: Curtis Recinos MD History of Present Illness History of Present Illness Brenda Farris is a 28 year old female who reports that she was at work and suddenly experienced a sensation that she was far away followed by numbness in the right face and a V2 and V3 distribution followed by dizziness and near fainting sensation. Patient presented to the [facility] emergency department code stroke initiated at 2:55 PM on 03/03/2024. In the emergency department patient reported symptoms resolved. NIH stroke score = 0 Accu-Chek glucose [address] reported to be negative per ER physician. Official radiology reading pending at the time of this dictation. According to the patient, she is a mother of 2 children and stated that she experienced preeclampsia with both pregnancies but the last October 2022 she experienced severe preeclampsia. In the [facility] emergency department currently patient blood pressure 153/106 heart rate 81 O2 saturation 100% on room air. Patient in no apparent distress. Drug allergies: Naproxen which resulted in hives Current medications: Amitriptyline 10 mg p.o. daily Lexapro 10 mg p.o. daily IUD control Estradiol 0.5 mg p.o. daily Pepcid 40 mg p.o. daily Past medical history: Mother of 2 children last delivery October 2022 Preeclampsia with both pregnancies Breast-feeding Habits: Patient denies ever smoking. She reported occasional alcohol use but stated that she quit drinking alcohol. The patient denied other drug use. Family history: Remarkable for a maternal grandmother who experienced a stroke Last menstrual period: Patient denies being she is reports she has an IUD. Note: Patient is breast-feeding Review of Systems 2 General: Reports: 10 or more systems reviewed and unremarkable except in HPI and below Medications/Allergies Home Medications Medication Instructions Recorded Confirmed Last Taken Type dapsone 5 % topical gel 1 applic topical BID 05/30/23 10/23/23 Unknown History levonorgestrel 21 mcg/24 hr (up to intrauterine 05/30/23 10/23/23 Unknown History 8 years) 52 mg intrauterine device (Mirena) famotidine 40 mg tablet 40 mg PO DAILY #30 tabs 10/23/23 10/23/23 Unknown Rx levocetirizine 5 mg tablet (Xyzal) 5 mg PO DAILY #30 tabs 10/23/23 10/23/23 Unknown Rx estradiol 0.5 mg tablet 0.5 mg PO QDAY #90 tabs 11/04/23 Unknown Rx amitriptyline 10 mg tablet 10 mg PO DAILY #90 tabs 12/18/23 Unknown Rx escitalopram oxalate 10 mg tablet 10 mg PO DAILY #30 tabs 01/26/24 Unknown Rx (Lexapro) ciprofloxacin HCl 0.3 % eye drops See Rx Instructions ophthalmic 01/30/24 Unknown Rx (eye) .COMPLEX #2.5 mL doxycycline hyclate 100 mg capsule 100 mg PO BID #14 caps 02/12/24 Unknown Rx Allergies Allergy/AdvReac Type Severity Reaction Status Date / Time naproxen Allergy Intermediate ALGY-Hives Verified 10/23/23 14:36 PFSH Acute 2 PFSH: Medical History History of pre-eclampsia in prior , currently in third trimester Gestational hypertension without significant proteinuria Anxiety Migraine without aura History of ectopic (~2018) Left fallopian tube--- treated with MTX;[facility] Surgical History History of tonsillectomy and adenoidectomy at age 6 Hx of wisdom tooth extraction (~2014) Family History Grandfather Colon cancer Paternal--dx age unknown Cancer Paternal-liver Grandmother Hypertension Maternal Stroke Maternal Father Hypertension Other Diabetes Liver disease Denies family history of Ovarian cancer Autoimmune disease Dementia Heart disease Hyperlipidemia Hyperthyroidism Hypothyroidism Psychiatric illness Chronic kidney disease (CKD) Breast cancer Bleeding disorder Lung disease Uterine cancer Thyroid disease Social History (Updated 10/23/23 @ 14:41 by Doreen Shea MA) Smoking and tobacco/nicotine status: never used tobacco/nicotine Alcohol intake: current Alcohol intake frequency: holidays/special occasions only Substance/Drug Use: never Lives independently: Yes Marital status: Number of children: 2 Current occupational status: employed Current occupation: [employer] [facility] Special flavia needs: No Agree to transfusion: Yes Female Reproductive History: Spontaneous abortions: No Vitals/I&O/Wt Last Vital Signs Temp 98.1 F 03/03/24 14:30 Pulse 80 03/03/24 15:09 Resp 18 03/03/24 14:30 BP 153/106 03/03/24 15:09 Pulse Ox 99 03/03/24 15:09 O2 Del Method Room Air 03/03/24 14:30 Weight last 48 hrs Weight 170 lb Physical Exam 2 Narrative: Blood pressure 153/106 heart rate 81 O2 saturation 100% on room air NIH score = 0 Glucose Accu-Chek 103 The patient is alert and oriented x 3. Speech fluent. Head atraumatic. Neck supple. Cranial nerves II through XII intact. Pupils equal round and reactive light and accommodation. Pupils 4 mm bilaterally. There were no nystagmus. Visual red full via confrontation. Motor testing 5/5 bilaterally. There was no ataxia in the upper or lower extremities. Sensory examination intact to touch. There was no extinction on double sensory stimulation. Throat clear. Lungs clear. Heart regular rhythm and rate. Extremities were negative for clubbing cyanosis or edema. Data 03/03/24 15:08 03/03/24 15:08 A&P Assessment and plan (1) TIA (transient ischemic attack): Impression: 1. Transient ischemic attack manifested as patient feeling far away followed by numbness in the right face and a V2 and V3 distribution followed by dizziness/near fainting sensation associated with elevated blood pressure of 153/106 with heart rate of 81. Symptoms resolved in the emergency room with NIH score =0. Since the patient was stable and NIH score = 0. The patient was not a candidate for intravenous thrombolytics and no intravenous thrombolytics were administered. Plan: 1. Address blood pressure elevation 2. Follow NIH stroke protocol with regards to antiplatelet and antilipid agents 3. Follow-up official radiology reading on noncontrast head CT 4. Give patient stroke pamphlet Consult Attestations 2 Medical Necessity Statement: The patient was evaluated by neurology for acute care/code stroke emergency department room #15 Coding Level of Care Code 91172 Diagnoses TIA (transient ischemic attack) G45.9
[2024-03-03 15:14] LABS: Basophils # 0.1 10^3/uL (0.0-0.1); Basophils % 0.6 %; Eosinophils # 0.1 10^3/uL (0.0-0.8); Eosinophils % 0.6 %; Hematocrit 43.8 % (36-47); Lymphocytes # 2.7 10^3/uL (0.8-4.8); Lymphocytes % 31.9 %; Mean Corpuscular Hemoglobin 30.3 pg (27-33); Mean Platelet Volume 11.3 fL (7.4-10.4); Monocytes # 0.6 10^3/uL (0.2-0.9); Monocytes % 6.6 %; Neutrophils # 5.11 10^3/uL (1.8-7.7); Neutrophils % 60.1 %; Nucleated Red Blood Cells % 0 %; Platelet Count 239 10^3/cmm (157-399); Red Blood Count 4.92 10^6/uL (3.85-5.65); Red Cell Distribution Width 11.8 % (12.1-15.1)
[2024-03-03 15:19] LABS: Charge for UA Resulting for Rev
[2024-03-03 15:22] LABS: Bilirubin Urine Negative (Negative); Blood Urine Negative (Negative); Glucose Urine UA Negative (Normal); Ketones Urine Negative (Negative); Leukocyte Esterase Urine Trace (Negative); Nitrate Urine Negative (Negative); Protein Urine Negative (Negative); Specific Gravity, Urine 1.004 (1.005-1.030); Urine Appearance Clear (CLEAR); Urine Color Yellow (Yellow); Urobilinogen Urine 0.2 mg/dL (Negative); pH Urine 5.5 (5-7)
[2024-03-03 15:24] LABS: Bacteria Urine 1+ /hpf; Hyaline Casts Urine 0-4 /lpf; RBC Urine 0-2 /hpf (0-2); Squamous Epithelial Cell Urine 0-5 /hpf (0-5); WBC Urine 0-5 /hpf (0-5)
[2024-03-03 15:29] LABS: Amphetamines Screen Urine Negative (Negative); Barbiturates Screen Urine Negative (Negative); Benzodiazepines Screen Urine Negative (Negative); Cocaine Screen Urine Negative (Negative); Opiate Screen Urine Negative (Negative); PCP Screen Urine Negative (Negative); THC Screen Urine Negative (Negative)
[2024-03-03 15:51] LABS: INR 0.96 (0.8-1.2)
[2024-03-03 15:52] LABS: Alanine Aminotransferase 25 U/L (0-33); Albumin Level 4.2 g/dL (3.5-5.2); Alkaline Phosphatase 98 U/L (35-105); Anion Gap 13.7 (5-19); Aspartate Amino Transferase 18 U/L (0-32); Blood Urea Nitrogen 7 mg/dL (6-20); Carbon Dioxide 23 mmol/L (22-29); Chloride 105 mmol/L (98-107); Creatinine Clr Calc Pharmacy 126.9315; Globulin 2.8 g/dL (1.3-4.6); Glomerular Filtration Rate 98.9 mL/min (90-130); Glucose 106 mg/dL (65-115); Osmolality Calculated 284 mOsm/kg (285-295); Potassium 3.7 mmol/L (3.5-5.1); Sodium 138 mmol/L (136-145); Total Bilirubin 0.4 mg/dL (0.15-1.2)
[2024-03-03 16:07] LABS: HCG, Serum Qual Negative (Negative)
[2024-03-03 16:30] VITALS: BP 122/97; PULSE 79; O2SAT 98
[2024-03-03 17:30] VITALS: BP 111/73; PULSE 81; O2SAT 98
[2024-03-03 17:38] VITALS: BP 111/73; PULSE 81; O2SAT 98
== END 2024-03-03 17:39 | disposition home or self-care (01) ==
PROVIDERS: Emergency Provider Family Medicine; PCP Family Medicine
DX: I10 Essential (primary) hypertension (principal)
CPT/HCPCS: 36415; 36416; 70450; 80053; 80306; 81003; 81015; 82962; 84703; 85025; 85610; 85730; 93005; 99284

== ENCOUNTER 2024-08-10 17:04 | Outpatient (CLI) | payer OTHER, SELFPAY ==
--- NOTE | 2024-08-10 17:13 | XR_ITS ---
WS: [id number] KUB, AP view, 08/10/2024 Clinical Data: R31.9 - Hematuria, unspecified Comparison: None. Findings: No abnormal intraabdominal masses or calcifications are seen. There is no dilatated small bowel or ev idence of obstruction. Fecal material in the colon overlies both kidneys. There is an IUD in the region of the uterus. The b ladder is full. XR/XR KUB [id number] Impression: Negative KUB.
== END 2024-08-10 17:05 | disposition home or self-care (01) ==
LOC: RAD 17:07
PROVIDERS: PCP Family Medicine; Visit Provider Nurse Practitioner Women's Health
DX: R31.9 Hematuria, unspecified (principal); R10.9 Unspecified abdominal pain; Z97.5 Presence of (intrauterine) contraceptive device
CPT/HCPCS: 74018; 81000; 87086

== ENCOUNTER → 2024-09-13 09:56 | Outpatient (BNVA) | payer OTHER, SELFPAY | PROVIDERS: PCP Family Medicine; Visit Provider Nurse Practitioner Women's Health | DX: Z01.419 Encounter for gynecological examination (general) (routine) without abnormal findings (principal) | CPT/HCPCS: 80053; 80061; 82306; 83036; 84443; 85025 ==

== ENCOUNTER → 2025-01-23 10:55 | Outpatient (BNVA) | payer OTHER, SELFPAY | PROVIDERS: PCP Family Medicine; Visit Provider Registered Nurse Neonatal Intensive Care | DX: M19.071 Primary osteoarthritis, right ankle and foot (principal) | CPT/HCPCS: 73630 ==